=== PATIENT | female | born 1985 | race Caucasian/White ===

== ENCOUNTER → 2016-06-16 | Outpatient (CLI) | payer BC, OTHER ==
[~2016-06-16] MED LIST: IBU800 M1 PO; PERCOCET 325 MG1 TA2 PO; PNV-SELECT1 TAB PO; SYNTHROID,LEVO50 MCG PO; TRAMADOL HCL50 MG PO
== END | disposition home or self-care (01) ==
LOC: LAB 15:01 → US 15:30
DX: E03.9 Hypothyroidism, unspecified (principal); M79.604 Pain in right leg

== ENCOUNTER → 2016-11-05 | Outpatient (CLI) | payer BC, OTHER | END | disposition home or self-care (01) | LOC: US 18:37 | DX: N83.202 Unspecified ovarian cyst, left side (principal); Z90.710 Acquired absence of both cervix and uterus ==

== ENCOUNTER → 2017-03-19 | Outpatient (CLI) | payer OTHER | END | disposition home or self-care (01) | LOC: CT 08:49 | DX: R31.0 Gross hematuria (principal); R10.2 Pelvic and perineal pain; Z90.49 Acquired absence of other specified parts of digestive tract ==

== ENCOUNTER → 2017-08-06 | Outpatient (CLI) | payer OTHER | END | disposition home or self-care (01) | LOC: US 10:57 | DX: M54.2 Cervicalgia (principal); R22.1 Localized swelling, mass and lump, neck ==

== ENCOUNTER 2018-08-15 06:47 | Emergency (ER) | payer OTHER ==
[~2018-08-15] VITALS: Ht 165.1 cm; Wt 83.0 kg
[2018-08-15 07:27] LABS: BILIRUBIN NEGATIVE (NEGATIVE); BLOOD 1+ (NEGATIVE); CLARITY CLEAR (CLEAR); COLOR YELLOW (YELLOW); GLUCOSE NEGATIVE (NEGATIVE); KETONE NEGATIVE (NEGATIVE); LEUKO ESTERASE NEGATIVE (NEGATIVE); NITRITE NEGATIVE (NEGATIVE); SPECIFIC GRAVITY >= 1.030 (1.005-1.030); UROBILINOGEN 0.2 E.U./dl (0.2-1.0)
[2018-08-15 07:38] LABS: WBC 0-2 wbc/hpf (0-5)
[2018-08-15] MEDS ORDERED: PREDNISONE50 MG PO (09:18)
[2018-08-15] MEDS ORDERED: CYCLOBENZAPRINE10 MG PO (09:18)
[2018-08-15] MEDS ORDERED: PERCOCET 5-3251 EACH PO (09:19)
== END 2018-08-15 09:24 | disposition home or self-care (01) ==
LOC: ED 06:47
PROVIDERS: Emergency Medicine
DX: S39.012A Strain of muscle, fascia and tendon of lower back, initial encounter (principal); Z91.040 Latex allergy status; Z88.6 Allergy status to analgesic agent; X58.XXXA Exposure to other specified factors, initial encounter; Y93.89 Activity, other specified; Y92.810 Car as the place of occurrence of the external cause; Y99.8 Other external cause status

== ENCOUNTER → 2020-06-22 | Outpatient (CLI) | payer BC ==
[~2020-06-22] MED LIST changes: +CYCLOBENZAPRINE10 MG PO; +PERCOCET 5-3251 EACH PO; +PREDNISONE50 MG PO
== END | disposition home or self-care (01) ==
LOC: COVID19 10:56
PROVIDERS: ATTEND Social Worker Clinical
DX: U07.1 COVID-19 (principal)

== ENCOUNTER → 2020-09-05 | Outpatient (CLI) | payer BC | END | disposition home or self-care (01) | LOC: US 10:59 | PROVIDERS: ATTEND Obstetrics & Gynecology | DX: N83.209 Unspecified ovarian cyst, unspecified side (principal); Z90.710 Acquired absence of both cervix and uterus ==

== ENCOUNTER → 2022-09-09 | Outpatient (CLI) | payer BC | LOC: MAMMO 08:00 | PROVIDERS: ATTEND Obstetrics & Gynecology | DX: N63.11 Unspecified lump in the right breast, upper outer quadrant (principal); N63.21 Unspecified lump in the left breast, upper outer quadrant; N64.4 Mastodynia ==